=== PATIENT | male | born 1985 | race Hispanic/Latino ===

== ENCOUNTER → 2016-10-02 | Outpatient (CLI) | payer BC ==
--- NOTE | 2016-10-02 13:55 | EKG ---
[address] [address] Measurements Intervals [place] Rate: 71 P: 65 MN: 145 QRS: 72 QRSD: 108 T: 41 QT: 360 QTc: 382 Interpretive Statements SINUS RHYTHM POSSIBLE INFERIOR MYOCARDIAL INFARCTION [30 ms Q WAVE IN II/aVF], PROBABLY OLD (versus septal Q waves) No previous ECG available for comparison Electronically Signed On 10-03-16 08:31:37 MDT by Pierre Soriano MD [id number]
== END ==
LOC: MOB EKG 13:47
PROVIDERS: ATTEND Nurse Practitioner Family
DX: R07.89 Other chest pain (principal)
CPT/HCPCS: 93005; 93010

== ENCOUNTER → 2016-10-15 | Outpatient (CLI) | payer BC ==
--- NOTE | 2016-10-15 09:28 | STRESSTEST ---
[facility] Interpretive Statements This 31 y.o. male with severe SARATH (still without prescribed BIPAP despite very postiive nocturnal oximetry) is referred by Drs. Knutson and Regis for prolonged and severe chest pain as well as borderline inferior Q waves. He has risk factors of smoking and family history of diabetes but has not had lipid screening and only borderline hypertension. He was able to reach 9.1 METs and DP=23.4K without ischemic change in inferior leads (with the computer reading ST depression on V4 being from a loose lead immediately normalized when reattached). There was no wheezing with exercise and no hypoxia and normal B/P response. IMPRESSION: Low risk Maximal ETT without inferior ischemia. [id number]
== END ==
LOC: EKG 08:21
PROVIDERS: ATTEND Nurse Practitioner Family
DX: R07.89 Other chest pain (principal); F17.200 Nicotine dependence, unspecified, uncomplicated; Z82.49 Family history of ischemic heart disease and other diseases of the circulatory system
CPT/HCPCS: 93016; 93017; 93018

== ENCOUNTER → 2016-10-16 | Outpatient (CLI) | payer BC ==
[2016-10-16 10:16] LABS: HEMATOCRIT 47.1 % (42.0-52.0); MEAN CORPUSCULAR HEMOGLOBIN 30.4 PG (27-31); MEAN CORPUSCULAR VOLUME 89.5 FL (80-90); MEAN PLATELET VOLUME 10.2 FL (7.4-12.2); RED BLOOD COUNT 5.26 10^6/uL (4.70-6.10)
[2016-10-16 10:49] LABS: BLOOD UREA NITROGEN 9 mg/dL (7-22); BUN/CREATININE RATIO 11.25 (6-20); CALCIUM 9.2 mg/dL (8.7-10.7); EST GLOMERULAR FILTRATION > 60 (>60 ml/min/1.73m(2)); SERUM ALBUMIN 4.2 g/dL (3.5-4.8)
[2016-10-16 11:04] LABS: FREE T4 (FREE THYROXINE) 1.17 ng/dL (0.93-1.71)
[2016-10-16 11:20] LABS: CHOL/HDL RATIO 3.24 RATIO (0-4.0); LDL CHOLESTEROL,CALCULATED 85.2 mg/dL
== END ==
LOC: MOB LAB 09:30
PROVIDERS: ATTEND Family Medicine
DX: Z00.00 Encounter for general adult medical examination without abnormal findings (principal); G47.30 Sleep apnea, unspecified; E66.01 Morbid (severe) obesity due to excess calories; Z83.3 Family history of diabetes mellitus; Z82.49 Family history of ischemic heart disease and other diseases of the circulatory system
CPT/HCPCS: 36415; 80053; 80061; 83036; 84439; 84443; 85027